=== PATIENT | female | born 1980 | race Caucasian/White ===

== ENCOUNTER 2017-10-13 06:40 | Day surgery (SDC) | payer BC ==
[~2017-10-13 06:40] MED LIST: ceFAZolin 2 GM in Premix Bag 1 BAG IV ONE
--- NOTE | 2017-10-13 07:08 | PCM.PREANE ---
Preanesthetic Assessment - Anesthesia/Transfusion/Family Hx Anesthesia History: Prior Anesthesia Without Reaction Family History of Anesthesia Reaction: No Transfusion History: No Prior Transfusion(s) Intubation History: Unknown - Review of Systems General: No Symptoms Pulmonary: No Symptoms Cardiovascular: No Symptoms Gastrointestinal: No Symptoms Neurological: No Symptoms Other: Reports: None - Physical Assessment Height: 1.65 m Weight: 81.647 kg ASA Class: 2 Mental Status: Alert & Oriented x3 Airway Class: Mallampati = 2 Dentition: Reports: Normal Dentition Thyro-Mental Finger Breadths: 2 Mouth Opening Finger Breadths: 2 ROM/Head Extension: Full Lungs: Clear to Auscultation, Normal Respiratory Effort Cardiovascular: Regular Rate, Regular Rhythm - Allergies Allergies/Adverse Reactions: Allergies Allergy/AdvReac Type Severity Reaction Status Date / Time No Known Allergies Allergy Verified 10/12/17 10:37 - Blood Blood Available: No - Anesthesia Plan Pre-Op Medication Ordered: None - Acknowledgements Anesthesia Type Planned: General Anesthesia Pt an Appropriate Candidate for the Planned Anesthesia: Yes Alternatives and Risks of Anesthesia Discussed w Pt/Guardian: Yes Pt/Guardian Understands and Agrees with Anesthesia Plan: Yes PreAnesthesia Questionnaire HEENT History: Reports: Other (See Below) Other HEENT History: wears glasses Musculoskeletal History: Reports: Fibromyalgia, Other (See Below) (right ankle fx.) Psychiatric History: Reports: Anxiety, Depression - Past Surgical History GI Surgical History: Reports: Appendectomy Female Surgical History: Reports: Breast Biopsy, Other (See Below) Other Female Surgeries/Procedures: Cystoscopy Musculoskeletal Surgical History: Reports: Arthroscopic Knee - SUBSTANCE USE Smoking Status *Q: Former Smoker Tobacco Use Within Last Twelve Months: No Recreational Drug Use History: No - HOME MEDS Home Medications: Home Meds DULoxetine [Cymbalta] 60 mg PO DAILY 02/11/14 [History] Desvenlafaxine Succinate [Pristiq] 50 mg PO DAILY 10/12/17 [History] Ketamine Nasal [place] 1 spray NASBOTH ASDIRECTED PRN 10/12/17 [History] Naltraxone 4.5 mg PO DAILY 10/12/17 [History] lamoTRIgine [Lamictal] 100 mg PO DAILY 10/12/17 [History] tiZANidine [Zanaflex] 4 mg PO DAILY 10/12/17 [History] - CURRENT (IN HOUSE) MEDS Current Meds: Current Medications Discontinued Medications Cefazolin Sodium/Dextrose 2 gm (/ Premix) 50 mls @ 100 mls/hr IV ONCALL ONE Stop: 10/13/17 00:30
[2017-10-13] MEDS ORDERED: Lactated Ringers 1,000 ML IV SCH (07:15)
[2017-10-13] MEDS ORDERED: Lidocaine 2% 5 ML SDV ONE (07:16)
[2017-10-13] MEDS ORDERED: fentaNYL 250 MCG/5 ML SDV ONE (07:16)
[2017-10-13] MEDS ORDERED: Ondansetron 4 MG/2 ML SDV ONE (07:16)
[2017-10-13] MEDS ORDERED: Midazolam 1 MG/ML 2 ML SDV ONE (07:16)
[2017-10-13] MEDS ORDERED: Propofol 200 MG/20 ML SDV ONE (07:16)
[2017-10-13] MEDS ORDERED: ceFAZolin/Dextrose,Iso-Osmotic 2 GM/50 ML Duplex Bag IV ONE (07:17)
[2017-10-13] MEDS ORDERED: Bupivacaine 0.5% 10 ML SDV ONE (07:20)
[2017-10-13] MEDS ORDERED: HYDROmorphone 2 MG/ML SDV ONE (08:06)
[2017-10-13] MEDS ORDERED: fentaNYL 100 MCG/2 ML SDV IVPUSH PRN (08:25)
[2017-10-13] MEDS ORDERED: Ketorolac 30 MG/ML SDV ONE (08:35)
--- NOTE | 2017-10-13 09:14 | PCM.OPNOTE ---
- General Post-Op/Procedure Note Date of Surgery/Procedure: 10/13/17 Operative Procedure(s): ORIF right ankle fracture Findings: Right ankle fracture Pre Op Diagnosis: right ankle fracture Post-Op Diagnosis: same Anesthesia Technique: General LMA Primary Surgeon: Sabino DE LA CRUZ in mLs: 10 Condition: Good
[2017-10-13] MEDS ORDERED: diphenhydrAMINE 50 MG/ML SDV IVPUSH ONE (09:48)
--- NOTE | 2017-10-13 10:01 | PCM.POSTAN ---
POST ANESTHESIA ASSESSMENT - MENTAL STATUS Mental Status: Alert, Oriented - RESPIRATORY Respiratory Status: Respiratory Rate WNL, Airway Patent, O2 Saturation Stable - CARDIOVASCULAR CV Status: Pulse Rate WNL, Blood Pressure Stable - GASTROINTESTINAL GI Status: No Symptoms - PAIN Pain Score: 3 - POST OP HYDRATION Hydration Status: Adequate & Stable - OBSERVATIONS Free Text/Narrative:: no anesthesia problems
--- NOTE | 2017-10-13 11:14 | PCM48HPAN ---
Post Anesthesia Note - EVALUATION WITHIN 48HRS OF ANESTHETIC Vital Signs in Normal Range: Yes Patient Participated in Evaluation: Yes Respiratory Function Stable: Yes Airway Patent: Yes Cardiovascular Function Stable: Yes Hydration Status Stable: Yes Pain Control Satisfactory: Yes Nausea and Vomiting Control Satisfactory: Yes Mental Status Recovered: Yes Resp Rate: 12 - COMMENTS/OBSERVATIONS Free Text/Narrative:: no anesthesia problems
[2017-10-13] MEDS ORDERED: Acetaminophen/HYDROcodone 325-7.5 MG Tab PO PRN (11:31)
--- NOTE | 2017-10-13 11:45 | CR ---
EXAMINATION: Right ankle HISTORY: ORIF COMPARISON: 10/12/2017 TECHNIQUE: 3 views FINDINGS/IMPRESSION: Operative control films demonstrate screw and plate fixation of the distal fibul a fracture.
--- NOTE | 2017-10-13 13:19 | OR ---
SURGEON: VIK AYON MD DATE OF PROCEDURE: 10/13/2017 ANESTHESIA: General anesthesia via LMA with local infiltration of Marcaine at the completion of the case. PREOPERATIVE DIAGNOSIS: Right ankle fracture. POSTOPERATIVE DIAGNOSIS: Right ankle fracture. OPERATION PERFORMED: Open reduction and internal fixation of right ankle fracture. COMPLICATIONS: None. ESTIMATED BLOOD LOSS: 10. TOURNIQUET TIME: 20 minutes at 250 mmHg. INDICATIONS: The patient is an otherwise healthy 37-year-old female, who sustained an ankle fracture a few days ago. Clinical examination as well as imaging with stress views were consistent with an unstable fracture involving the lateral malleolus with associated deltoid ligament injury. We discussed conservative versus surgical treatment options. Following a thorough discussion of the risks, benefits, expected outcomes, alternatives, the patient did wish to proceed with surgery. DESCRIPTION OF PROCEDURE: I saw the patient in preoperative holding area. The operative site was marked. She was brought back to the operating room. General anesthesia was administered. She received 2 g of Ancef preoperatively. She was positioned supine with a bump. She was then prepped and draped in normal sterile fashion. Following a multidisciplinary time-out, the Esmarch bandage applied, tourniquet inflated to 250 mmHg. A lateral incision and direct approach to the distal fibula was made. Care with dissection proximally to avoid inadvertent injury to the superficial peroneal nerve. The fracture was identified. I meticulously cleaned out hematoma and periosteum in order to visualize anatomic reduction. This was achieved with a clamp and secured with a single 3.5 lag screw. The plate was then applied. It was secured distally with three locking screws and proximally with two nonlocking and one locking screw. Fluoroscopic views were obtained to ensure appropriate position of the hardware as well as anatomic reduction of fracture, which was present. Stress views obtained at this time with external rotation, which showed no widening medially after fixation of the fracture. The wound was then thoroughly irrigated. The tourniquet was deflated. Hemostasis was obtained. Closure occurred with 0 Vicryl, 2-0 Vicryl, 3-0 Vicryl, and jaya. A sterile dressing as well as a splint was applied. The patient was transferred to recovery in stable condition. Postoperative plan will include routine cares following ankle ORIF. She will remain in the splint for the first 10 to 14 days until her postoperative appointment and she needs to remain clean and dry. At the time of her first postoperative visit, she will have x-rays out of the splint. Assuming these look okay, this is a relatively stable fracture, I think it would be fine to transition her into a weightbearing cast at that time. If she has any issues in the interim, she can follow up sooner. DALTON / SLIM /[id number] NAV
== END 2017-10-13 12:00 | disposition home or self-care (01) ==
LOC: MW.SDS 06:40
PROVIDERS: ATTEND Orthopaedic Surgery
DX: S82.891A Other fracture of right lower leg, initial encounter for closed fracture (principal); M79.7 Fibromyalgia; F41.9 Anxiety disorder, unspecified; F32.9 Major depressive disorder, single episode, unspecified; Z87.891 Personal history of nicotine dependence; Z79.899 Other long term (current) drug therapy; W19.XXXA Unspecified fall, initial encounter
CPT/HCPCS: 27792; 76000; 81025; J0131; J0690; J1170; J1200; J1885; J2250; J2405; J2704; J3010; J3490; J7120

== ENCOUNTER 2017-10-23 23:39 | Emergency (ER) | payer BC ==
--- NOTE | 2017-10-23 23:58 | EDM.PDOC ---
ED HPI GENERAL MEDICAL PROBLEM - General Chief Complaint: General Stated Complaint: ANXIETY Time Seen by Provider: 10/23/17 23:52 - History of Present Illness INITIAL COMMENTS - FREE TEXT/NARRATIVE: HISTORY AND PHYSICAL: History of present illness: Patient 37-year-old female presents with concern of acute anxiety patient's had adjustments in her medications recently for her depression and anxiety. Review of systems: As per history of present illness and below otherwise all systems reviewed and negative. Past medical history: As per history of present illness and as reviewed below otherwise noncontributory. Surgical history: As per history of present illness and as reviewed below otherwise noncontributory. Social history: No reported history of drug or alcohol abuse. Family history: As per history of present illness and as reviewed below otherwise noncontributory. Physical exam: HEENT: Atraumatic, normocephalic, pupils reactive, negative for conjunctival pallor or scleral icterus, mucous membranes moist, throat clear, neck supple, nontender, trachea midline. Lungs: Clear to auscultation, breath sounds equal bilaterally, chest nontender. Heart: S1S2, regular, negative for clicks, rubs, or JVD. Abdomen: Soft, nondistended, nontender. Negative for masses or hepatosplenomegaly. Negative for costovertebral tenderness. Pelvis: Stable nontender. Genitourinary: Deferred. Rectal: Deferred. Extremities: Atraumatic, negative for cords or calf pain. Neurovascular unremarkable. Neuro: Awake, alert, anxious, oriented. Cranial nerves II through XII unremarkable. Cerebellum unremarkable. Motor and sensory unremarkable throughout. Exam nonfocal. Diagnostics: None Therapeutics: None Impression: #1 acute anxiety Definitive disposition and diagnosis as appropriate pending reevaluation and review of above. denies pain Pain Score (Numeric/FACES): 0 - Related Data Allergies Allergy/AdvReac Type Severity Reaction Status Date / Time No Known Allergies Allergy Verified 10/23/17 23:46 Home Meds: Home Meds DULoxetine [Cymbalta] 60 mg PO DAILY 02/11/14 [History] Desvenlafaxine Succinate [Pristiq] 50 mg PO DAILY 10/12/17 [History] Ketamine Nasal [place] 1 spray NASBOTH ASDIRECTED PRN 10/12/17 [History] Naltraxone 4.5 mg PO DAILY 10/12/17 [History] lamoTRIgine [Lamictal] 100 mg PO DAILY 10/12/17 [History] tiZANidine [Zanaflex] 4 mg PO DAILY 10/12/17 [History] Past Medical History HEENT History: Reports: Other (See Below) Other HEENT History: wears glasses Musculoskeletal History: Reports: Fibromyalgia, Other (See Below) (right ankle fx.) Psychiatric History: Reports: Anxiety, Depression - Past Surgical History GI Surgical History: Reports: Appendectomy Female Surgical History: Reports: Breast Biopsy, Other (See Below) Other Female Surgeries/Procedures: Cystoscopy Musculoskeletal Surgical History: Reports: Arthroscopic Knee Social & Family History - Caffeine Use Caffeine Use: Reports: None ED ROS GENERAL - Review of Systems Review Of Systems: ROS reveals no pertinent complaints other than HPI. ED EXAM, GENERAL - Physical Exam Exam: See Below (The dictation) Course - Vital Signs Last Recorded V/S: Last Vital Signs Temp 36.4 C 10/23/17 23:47 Pulse 120 H 10/23/17 23:47 Resp 18 10/23/17 23:47 BP 132/86 10/23/17 23:47 Pulse Ox 98 10/23/17 23:47 Departure - Departure Time of Disposition: 23:57 Disposition: Home, Self-Care 01 Condition: Good Clinical Impression: Anxiety - Discharge Information *PRESCRIPTION DRUG MONITORING PROGRAM REVIEWED*: Not Applicable *COPY OF PRESCRIPTION DRUG MONITORING REPORT IN PATIENT SARAHY: Not Applicable Additional Instructions: The following information is given to patients seen in the emergency department who are being discharged to home. This information is to outline your options for follow-up care. We provide all patients seen in our emergency department with a follow-up referral. The need for follow-up, as well as the timing and circumstances, are variable depending upon the specifics of your emergency department visit. If you don't have a primary care physician on staff, we will provide you with a referral. We always advise you to contact your personal physician following an emergency department visit to inform them of the circumstance of the visit and for follow-up with them and/or the need for any referrals to a consulting specialist. The emergency department will also refer you to a specialist when appropriate. This referral assures that you have the opportunity for followup care with a specialist. All of these measure are taken in an effort to provide you with optimal care, which includes your followup. Under all circumstances we always encourage you to contact your private physician who remains a resource for coordinating your care. When calling for followup care, please make the office aware that this follow-up is from your recent emergency room visit. If for any reason you are refused follow-up, please contact the [facility] emergency department at and asked to speak to the emergency department charge nurse. Follow-up primary medical doctor return as needed as discussed[]
== END 2017-10-24 00:27 | disposition home or self-care (01) ==
LOC: MW.ED 23:39
DX: F41.9 Anxiety disorder, unspecified (principal)
CPT/HCPCS: 99283